=== PATIENT | female | born 1940 | race Caucasian/White ===

== ENCOUNTER 2018-09-21 07:35 | Day surgery (SDC) | payer MEDICARE ==
[2018-09-20 13:26] VITALS: BMI 25.0
[2018-09-21] MEDS ORDERED: Fentanyl 100 MCG/2 ML VIAL ONE (08:41)
[2018-09-21] MEDS ORDERED: Midazolam HCl 2 mg/2 ml Vial ONE (08:41)
[2018-09-21] MEDS ORDERED: Lidocaine 1% (PF) 30 ML VIAL ONE (08:41)
[2018-09-21] MEDS ORDERED: Iopamidol 370 76% 100 ML VIAL ONE (09:42)
[2018-09-21] MEDS ORDERED: Iopamidol 370 76% 50 ML VIAL FS ONE (09:42)
[2018-09-21] MEDS ORDERED: Nitroglycerin 100MG/250ML BOT 250 ML ONE (09:49)
[2018-09-21] MEDS ORDERED: Verapamil 5 MG/2 ML VIAL ONE (09:49)
[2018-09-21] MEDS ORDERED: Heparin 10,000 UNITS/1 ML VIAL ONE (09:49)
== END 2018-09-21 14:16 | disposition home or self-care (01) ==
LOC: CCL 07:35
PROVIDERS: ATTEND Internal Medicine Cardiovascular Disease
PROC: 4A023N7 Measurement of Cardiac Sampling and Pressure, Left Heart, Percutaneous Approach (ICD-10-PCS; principal; 2018-09-21)
PROC: B2111ZZ Fluoroscopy of Multiple Coronary Arteries using Low Osmolar Contrast (ICD-10-PCS; 2018-09-21)
DX: I25.10 Atherosclerotic heart disease of native coronary artery without angina pectoris (principal); I34.0 Nonrheumatic mitral (valve) insufficiency; I42.0 Dilated cardiomyopathy; Z87.891 Personal history of nicotine dependence
CPT/HCPCS: 93458; 99152; C1769; J1644; J2001; J2250; J3010; Q9967

== ENCOUNTER → 2018-09-29 | Day surgery (SDC) | payer MEDICARE ==
[2018-09-28 14:28] VITALS: BMI 25.0
[~2018-09-29] MED LIST: Fentanyl 100 MCG/2 ML VIAL ONE; PROPOFOL 200 MG/20 ML VIAL ONE
--- NOTE | 2018-09-30 10:23 | ECHO ---
CARDIOLOGY PROCEDURE NOTE: Date: 09/29/18 PROCEDURE: Transesophageal echocardiogram. PREPROCEDURE DIAGNOSIS: Mitral regurgitation. PROCEDURE DETAILS: Ms. Trotter is a 78-year-old white female who was brought to the outpatient area for a planned WILFREDO. She had sedation provided by the anesthesiology department. Please see their notes for details. Afte r adequate sedation was achieved, the transesophageal probe was inserted into the mouth and into the esophagus, and multiplanar views were then obtained. FINDINGS: Left ventricle is normal size with low normal systolic function. Ejection fraction estimated at about 45-50%. Left atrium is severely dilated. Left atrial appendage is a large appendage with no mass or thrombus. Right atrium is mildly dilated. Right ventricle is normal size. Normal systolic function. Aortic valve is sclerotic, but opens well. No stenosis. Mild aortic regurgitation. Tricuspid valve has mild posterior leaflet prolapse with severe mitral regurgitation, central jet. Tricuspid valve structurally normal. Mild TR. No stenosis. Pulmonary valve structurally normal. No significant pulmonary insufficiency. Aortic root is normal size at 2.8 cm. Intraatrial septum is intact by agitated saline study. CONCLUSIONS: 1. Mildly reduced LV systolic function, ejection fraction at 45-50%. 2. Severely dilated left atrial. 3. Left atrial appendage is large with normal velocities. 4. Right atrial enlargement. 5. Mitral valve prolapse of posterior leaflet with severe mitral regurgitation. 6. Aortic valve sclerosis. 7. Mild TR. 8. No evidence of shunting in intraatrial septum by agitated saline study.
== END ==
LOC: CCL 06:11
PROVIDERS: ATTEND Internal Medicine Cardiovascular Disease
PROC: B24BZZ4 Ultrasonography of Heart with Aorta, Transesophageal (ICD-10-PCS; principal; 2018-09-29)
DX: I42.0 Dilated cardiomyopathy (principal); I34.1 Nonrheumatic mitral (valve) prolapse; I35.0 Nonrheumatic aortic (valve) stenosis; I34.0 Nonrheumatic mitral (valve) insufficiency; Z87.891 Personal history of nicotine dependence
CPT/HCPCS: 93312; J2704; J3010

== ENCOUNTER 2018-11-06 09:11 | Outpatient (CLI) | payer MEDICARE ==
--- NOTE | 2018-11-06 10:24 | CT ---
FCT CHEST NONCONTRAST CT ABDOMEN AND PELVIS NONCONTRAST: HISTORY: Nonrheumatic mitral regurgitation. Preop for mitral valve replacement. Vascular evaluation. FINDINGS: Lungs are slightly hyperinflated with scattered areas of scarring. Old healed left posterolateral ri b fractures. Degenerative changes throughout the thoracolumbar spine. Lack of contrast limits evaluation of the soft tissues. No bulky mediastinal or abdominal adenopathy. Solid organs are unremarkable given the lack of IV contrast. Diverticula arise from the colon withou t adjacent inflammation. There is normal branching of the great vessels at the aortic arch. Prominent arterial calcification o f the aortic arch and left subclavian artery origin including short segment focus of very high-grade stenosis. Calcification in the coronary arteries. Moderate calcification of the abdominal aorta. Normal anatomy of the distal aorta and iliac vessels. Single inferior vena cava on the right of midline. Moderate calcification along the left margin of the mitral valve. IMPRESSION: 1. Prominent atherosclerosis, including within the distal abdominal aorta, as detailed above. Short segment focus of high-grade stenosis within the proximal left subclavian artery. Prominent coronary a rtery calcification. 2. Anatomy of the lower great vessels and iliac vessels is normal. No major anatomic variants. 3. Diverticulosis. No evidence of diverticulitis. Transcribed Date/Time: 11/06/2018 10:39 AM
--- NOTE | 2018-11-06 10:35 | ULT ---
FBILATERAL CAROTID DUPLEX ULTRASOUND: HISTORY: Syncope TECHNIQUE: Grayscale, color-flow and spectral Doppler ultrasound imaging of the extracranial carotid artery syst ems was performed bilaterally. FINDINGS: There is scattered atherosclerotic plaque. Abnormal waveform is documented within the right common ca rotid artery. The peak systolic velocity in the right ICA measures 32 cm/s. The peak systolic velocity in the left ICA measures 106 cm/s. Vertebral flow: There is retrograde flow of the right vertebral artery. Antegrade flow is documented within the left vertebral artery IMPRESSION: No hemodynamically significant stenosis of Both ICAs. Retrograde flow is demonstrated within the right vertebral artery. Recommend clinical correlation to exclude evidence of vertebrobasilar insufficiency. Irregular waveform of the right carotid artery. This can be seen in the setting of cardiac dysrhythmi a. Correlate clinically.
[2018-11-06] MEDS ORDERED: Iopamidol 370 76% 100 ML VIAL ONE (14:45)
== END 2018-11-06 09:12 | disposition home or self-care (01) ==
LOC: CT 09:11
DX: I34.0 Nonrheumatic mitral (valve) insufficiency (principal); I42.0 Dilated cardiomyopathy; I70.0 Atherosclerosis of aorta; I25.10 Atherosclerotic heart disease of native coronary artery without angina pectoris; I70.8 Atherosclerosis of other arteries
CPT/HCPCS: 71250; 74177; 93880; Q9967

== ENCOUNTER 2019-05-17 10:27 | Day surgery (SDC) | payer MEDICARE ==
[2019-05-16 11:59] VITALS: BMI 22.7
[2019-05-17] MEDS ORDERED: PROPOFOL 20 ML ONE (11:35)
[2019-05-17 11:42] LABS: Prothrombin Time 12.9 SEC (12.0-14.7)
[2019-05-17 11:43] LABS: PTT 24.4 SEC (22.9-36.1)
--- NOTE | 2019-05-17 19:34 | OP ---
DATE OF PROCEDURE: 05/17/2019 PROCEDURE PERFORMED: Transesophageal echo. DESCRIPTION OF PROCEDURE: The Anesthesiology department provided with sedation for the patient. Please see their notes for details. After adequate sedation was achieved, the transesophageal probe was inserted into the mouth and into the esophagus and multiplanar views were then obtained. Left ventricle appears normal size. 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 Left atrium is dilated. Right atrium is mildly dilated. Right ventricle is normal size. Aortic valve has sclerosis with mild AI. No stenosis. Tricuspid valve is structurally normal. There is mild TR. Pulmonary valve structure normal. There is mild PI. Mitral valve has mitral valve ring and repair, it has normal flow with no evidence of mitral valve regurgitation. CONCLUSIONS: 1. LV function at 45% to 50%. 2. Mitral valve repair with ring annuloplasty is very well seated with no evidence of mitral valve regurgitation or stenosis. 3. 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 Job ID: [id number]
== END 2019-05-17 13:30 | disposition home or self-care (01) ==
LOC: CCL 10:27
PROVIDERS: ATTEND Internal Medicine Cardiovascular Disease
PROC: B24BZZ4 Ultrasonography of Heart with Aorta, Transesophageal (ICD-10-PCS; principal; 2019-05-17)
DX: I35.8 Other nonrheumatic aortic valve disorders (principal); I42.0 Dilated cardiomyopathy; I25.10 Atherosclerotic heart disease of native coronary artery without angina pectoris; Z79.82 Long term (current) use of aspirin; Z79.899 Other long term (current) drug therapy; Z87.891 Personal history of nicotine dependence
CPT/HCPCS: 85610; 85730; 93312; J2704

== ENCOUNTER 2019-10-18 13:24 | Outpatient (CLI) | payer MEDICARE ==
--- NOTE | 2019-10-18 14:40 | MRI ---
Exam: Brain MRI without contrast HISTORY: Bilateral leg weakness. Transient ischemic attack. COMPARISON: None FINDINGS: Calvarial marrow signal intensity: Appropriate T1 signal Gradient echo sequence: No hemorrhage Brain parenchyma: No mass, mass effect or midline shift. Brain volume, age-appropriate. Cortical brambila-white matter differentiation: Preserved Restricted diffusion: Absent flow void in the distal cervical and intracranial right internal carotid artery. There is evidence of partial flow void in the right A1 and M1 segment, likely due to collaterals. Small focus of restricted diffusion involving the periventricular white matter adjacent to the posterior body of the right lateral ventricle. White matter signal intensities: T2, FLAIR white matter hyperintensities due to chronic small vessel ischemic changes Sinuses: Adequate aeration of the paranasal sinuses and mastoid air cells. IMPRESSION: 1. Right occipital. White matter infarct. 2. Occlusion of the right internal carotid artery. Partial flow to the right A1 and M1 segment may be due to collaterals.
--- NOTE | 2019-10-18 14:46 | MRI ---
EXAM: MRA Angio Brain wo STANDARD 3-D reconstruction images are provided PROVIDED CLINICAL HISTORY: Bilateral leg weakness. TIA. COMPARISON: MRI brain also obtained on this date. FINDINGS: There is occlusion of the right vertebral artery as well as the right internal carotid artery. The le ft vertebral artery as well as bilateral posterior cerebral arteries appear patent without significant stenosis or branch occlusion identified. The left middle cerebral artery is patent. Anterior cerebral arteries also appear patent. Each anteri or cerebral artery is visualized suggesting patency of the anterior communicating artery. As noted above, there right internal carotid artery is patent. There is minimal flow related enhancem ent in the right middle cerebral artery, this is asymmetrically decreased compared to the left. An approximately 4 mm saccular aneurysm is seen involving the posterolateral aspect of the supraclino id left ICA. No definite additional aneurysm is seen within the limitations of the technique of this examination. IMPRESSION: 1. 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 Nonemergent neurosurgical evaluation is suggested. 2. 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 3. Minimal flow related enhancement involving the right middle cerebral artery. The anterior communic ating artery is not well visualized and may be small in size which is a normal variant, but each anterior cerebral artery is visualized and appear patent.
== END 2019-10-18 13:25 | disposition home or self-care (01) ==
LOC: MRI 13:24
PROVIDERS: ATTEND Family Medicine
DX: G45.9 Transient cerebral ischemic attack, unspecified (principal); I67.1 Cerebral aneurysm, nonruptured; I65.21 Occlusion and stenosis of right carotid artery; I65.01 Occlusion and stenosis of right vertebral artery
CPT/HCPCS: 70544; 70551

== ENCOUNTER 2020-01-11 09:03 | Outpatient (CLI) | payer MEDICARE ==
--- NOTE | 2020-01-11 11:35 | PET ---
Radionucleotide PET scan for dementia HISTORY: Senile degeneration of the brain. TIA. COMPARISON: MRI brain 10/18/2019. FINDINGS: Physiologic uptake of radiotracer is present throughout each cerebral and cerebellar hemisp here. Oconnell-white differentiation is preserved. No focal defect or lobar abnormalities are apparent. IMPRESSION : No abnormalities are demonstrated.
== END 2020-01-11 09:04 | disposition home or self-care (01) ==
LOC: PET 09:03
PROVIDERS: ATTEND Psychiatry & Neurology Neurology
DX: G45.9 Transient cerebral ischemic attack, unspecified (principal); G31.1 Senile degeneration of brain, not elsewhere classified
CPT/HCPCS: 78803; A9552

== ENCOUNTER 2022-09-24 14:54 | Inpatient (IN) | payer MEDICARE ==
[2022-09-24] MEDS ORDERED: Ondansetron PF 4 MG/2 ML Vial IVP PRN (21:40)
[2022-09-24] MEDS ORDERED: Ondansetron ODT 4 MG TAB PO PRN (21:40)
[2022-09-24] MEDS ORDERED: Calcium Carbonate 500 MG ChewTAB PO PRN (21:40)
[2022-09-24] MEDS ORDERED: Senokot S 8.6-50 MG TAB PO PRN (21:40)
[2022-09-24] MEDS ORDERED: Acetaminophen 325 MG TAB PO PRN (21:40)
[2022-09-24] MEDS ORDERED: hydrALAZINE 20 MG/ML VIAL SLOW IVP PRN (21:40)
[2022-09-24 23:16] LABS: ALT (SGPT) 29 U/L (8-55); AST (SGOT) 20 U/L (5-34); Albumin 3.4 g/dL (3.4-4.8); Alkaline Phosphatase 135 U/L (40-110); Anion Gap 9 mmol/L (10-20); BUN (Urea Nitrogen) 9 mg/dL (9.8-20.1); Bilirubin, Total 1.9 mg/dL (0.2-1.2); Calc. Creatinine Clearance 0 mL/min (70-130); Calcium 8.2 mg/dL (7.8-10.44); Carbon Dioxide 24 mmol/L (23-31); Chloride 109 mmol/L (98-107); Estimated GFR 89; Globulin 2.1 g/dL (2.4-3.5); Glucose 147 mg/dL (83-110); Phosphorus 3.7 mg/dL (2.3-4.7); Potassium 3.4 mmol/L (3.5-5.1); Protein, Total 5.5 g/dL (5.8-8.1); Sodium 139 mmol/L (136-145)
[2022-09-24 23:20] LABS: #Basophils 0.1 thou/uL (0.0-0.2); #Eosinphils 0.2 thou/uL (0.0-0.7); #Lymphocytes 1.4 thou/uL (1.20-3.40); #Monocytes 0.6 thou/uL (0.11-0.59); #Neutrophils 3.7 thou/uL (1.40-6.50); %Basophils 0.9 % (0.0-1.0); %Eosinophils 3.7 % (0.0-10.0); %Lymphocytes 24.3 % (21.0-51.0); %Monocytes 9.6 % (0.0-10.0); %Neutrophils 61.5 % (42.0-75.0); Hemoglobin 13.5 g/dL (12.0-16.0); Mean Corpuscular Hemoglobin 29.8 pg (27.0-31.0); Mean Corpuscular Volume 93.1 fl (78.0-98.0); Platelet Count 140 10x3/uL (130-400); RBC Distribution Width 12.3 % (11.5-14.5); Red Blood Cell (RBC) Count 4.54 mill/uL (4.20-5.40)
[2022-09-24 23:21] LABS: Platelet Morphology Comment Appears Adequate; RBC Morphology Normal
[2022-09-24] MEDS ORDERED: Potassium Chloride 20 MEQ TAB PO SCH (23:30)
[2022-09-25 00:33] VITALS: BMI 21.4
[2022-09-25 06:18] LABS: Hemoglobin A1c 4.8 % (4.0-6.0)
[2022-09-25] MEDS ORDERED: Electrolyte Replacement Protocol 1 EACH FS SCH (07:37)
[2022-09-25] MEDS ORDERED: Potassium Chloride 20 MEQ TAB PO SCH (08:00)
[2022-09-25] MEDS ORDERED: Magnesium 2 GM/50 ML(in water) 2 GM in Premix Bag 1 BAG IVPB SCH (08:00)
[2022-09-25] MEDS: Aspirin 81 mg Enteric Coated Tablet PO SCH (08:18)
[2022-09-25] MEDS: Atorvastatin Calcium 40 MG TAB PO SCH (08:19)
[2022-09-25] MEDS ORDERED: hydrOXYzine 25 MG TAB PO SCH (19:00)
[2022-09-25] MEDS: QUEtiapine 25 MG TAB PO SCH (19:24)
[2022-09-25] MEDS ORDERED: Haloperidol Lactate 5 MG/ML VIAL SLOW IVP SCH (21:45)
[2022-09-26] MEDS: Atorvastatin Calcium 40 MG TAB PO SCH (09:11)
[2022-09-26] MEDS: Aspirin 81 mg Enteric Coated Tablet PO SCH (09:11)
[2022-09-26 10:25] LABS: #Basophils 0.1 thou/uL (0.0-0.2); #Eosinphils 0.4 thou/uL (0.0-0.7); #Lymphocytes 1.3 thou/uL (1.20-3.40); #Monocytes 0.5 thou/uL (0.11-0.59); #Neutrophils 3.3 thou/uL (1.40-6.50); %Basophils 1.1 % (0.0-1.0); %Lymphocytes 22.7 % (21.0-51.0); %Monocytes 8.8 % (0.0-10.0); %Neutrophils 59.3 % (42.0-75.0); Hemoglobin 14.5 g/dL (12.0-16.0); Mean Corpuscular HGB CONC 32.3 g/dL (32.0-36.0); Mean Corpuscular Hemoglobin 30.4 pg (27.0-31.0); Mean Corpuscular Volume 94.1 fl (78.0-98.0); Mean Platelet Volume 10.2 fL (7.4-10.4); Platelet Count 130 10x3/uL (130-400); RBC Distribution Width 12.6 % (11.5-14.5); Red Blood Cell (RBC) Count 4.78 mill/uL (4.20-5.40); White Blood Cell (WBC) Count 5.5 10x3/uL (4.8-10.8)
[2022-09-26 10:50] LABS: Anion Gap 13 mmol/L (10-20); BUN (Urea Nitrogen) 8 mg/dL (9.8-20.1); Calc. Creatinine Clearance 59 mL/min (70-130); Calcium 8.6 mg/dL (7.8-10.44); Carbon Dioxide 18 mmol/L (23-31); Chloride 112 mmol/L (98-107); Estimated GFR 84; Glucose 138 mg/dL (83-110); Potassium 4.2 mmol/L (3.5-5.1); Sodium 139 mmol/L (136-145)
[2022-09-26] MEDS ORDERED: Magnesium 2 GM/50 ML(in water) 2 GM in Premix Bag 1 BAG IVPB SCH (12:45)
[2022-09-26] MEDS: QUEtiapine 25 MG TAB PO SCH (20:42)
[2022-09-27 05:44] LABS: #Eosinphils 0.5 thou/uL (0.0-0.7); #Lymphocytes 1.5 thou/uL (1.20-3.40); #Monocytes 0.7 thou/uL (0.11-0.59); #Neutrophils 2.6 thou/uL (1.40-6.50); %Basophils 0.4 % (0.0-1.0); %Lymphocytes 28.1 % (21.0-51.0); %Monocytes 12.5 % (0.0-10.0); Hemoglobin 14.1 g/dL (12.0-16.0); Mean Corpuscular HGB CONC 32.8 g/dL (32.0-36.0); Mean Corpuscular Hemoglobin 30.3 pg (27.0-31.0); Mean Corpuscular Volume 92.4 fl (78.0-98.0); Mean Platelet Volume 10.2 fL (7.4-10.4); Platelet Count 140 10x3/uL (130-400); RBC Distribution Width 12.3 % (11.5-14.5); Red Blood Cell (RBC) Count 4.65 mill/uL (4.20-5.40); White Blood Cell (WBC) Count 5.2 10x3/uL (4.8-10.8)
[2022-09-27 06:12] LABS: Anion Gap 13 mmol/L (10-20); BUN (Urea Nitrogen) 13 mg/dL (9.8-20.1); Calc. Creatinine Clearance 61 mL/min (70-130); Calcium 8.7 mg/dL (7.8-10.44); Carbon Dioxide 20 mmol/L (23-31); Chloride 112 mmol/L (98-107); Estimated GFR 88; Glucose 79 mg/dL (83-110); Magnesium 2.2 mg/dL (1.6-2.6); Sodium 141 mmol/L (136-145)
[2022-09-27] MEDS: Aspirin 81 mg Enteric Coated Tablet PO SCH (08:20)
[2022-09-27] MEDS: Fluticasone Propionate Nasal Spray 16 gm Bottle NASAL SCH ×2 (08:20→08:27)
[2022-09-27] MEDS: Atorvastatin Calcium 40 MG TAB PO SCH (08:20)
[2022-09-27 11:54] VITALS: TEMP 97.4
[2022-09-27 13:29] VITALS: BP 111/63
[2022-09-27] MEDS ORDERED: Apixaban 5 MG TAB PO SCH (21:00)
[2022-09-28] MEDS ORDERED: FLU VACC QS2022-23(65YR UP)/PF 240 MCG/0.7 ML SYRINGE IM ONE (01:15)
== END 2022-09-27 15:10 | disposition home or self-care (01) | DRG 69 ==
LOC: NEURO 14:54 → OBSVTOIN 21:54
PROVIDERS: ADMIT Internal Medicine; ATTEND Internal Medicine
DX: G45.9 Transient cerebral ischemic attack, unspecified (principal); I47.20 Ventricular tachycardia, unspecified; I42.0 Dilated cardiomyopathy; I50.22 Chronic systolic (congestive) heart failure; Z20.822 Contact with and (suspected) exposure to COVID-19; I25.10 Atherosclerotic heart disease of native coronary artery without angina pectoris; I48.0 Paroxysmal atrial fibrillation; E78.5 Hyperlipidemia, unspecified; E03.9 Hypothyroidism, unspecified; F03.90 Unspecified dementia, unspecified severity, without behavioral disturbance, psychotic disturbance, mood disturbance, and anxiety; M16.11 Unilateral primary osteoarthritis, right hip; I49.3 Ventricular premature depolarization; Z79.899 Other long term (current) drug therapy; Z79.02 Long term (current) use of antithrombotics/antiplatelets; Z79.01 Long term (current) use of anticoagulants; Z95.5 Presence of coronary angioplasty implant and graft; Z95.2 Presence of prosthetic heart valve; Z86.73 Personal history of transient ischemic attack (TIA), and cerebral infarction without residual deficits; Z98.890 Other specified postprocedural states; Z87.891 Personal history of nicotine dependence; Z82.49 Family history of ischemic heart disease and other diseases of the circulatory system
CPT/HCPCS: 36415; 70551; 72170; 80048; 80061; 83036; 83735; 84100; 84439; 84443; 85025; 93306; J3475; U0003; U0005